=== PATIENT | female | born 1965 | race Caucasian/White ===

== ENCOUNTER 2017-12-06 13:45 | Emergency (ER) | payer OTHER ==
[~2017-12-06] VITALS: Ht 167.6 cm; Wt 82.6 kg
[~2017-12-06 13:45] MED LIST: ANASPAZ0.125 MG; AUGMENTIN 875875 MG PO; BENADRYL25 MG PO; COLACE100 MG; DARVOCET-N 1001 EACH PO; FIORICET 50-321 EACH PO; GNP HEADACHE P1 EACH PO; IBUPROFEN 600600 M1 PO; KEFLEX500 MG; MACROBID 100 M100 M1 PO; MUCINEX D TABL1 EAC1 PO; NAPROSYN500 MG PO; NOHOMEMEDICATIONS; NORCO 5-325 TA1 EACH; NORCO 5-325 TA1 EACH PO; NORFLEX100 MG PO; PAIN & FEVER500 MG PO; PHENAZOPYRIDIN200 M2; PHENERGAN 25 MG25 M1 PO; PREDNISONE 20 M20 MG PO; PROAIR HFA8.5 GM INH; SENNA8.6 M1; SLEEP-AID25 M1 PO; ULTRAM 50MG TAB50 MG PO
[2017-12-06 14:04] LABS: URINE BILIRUBIN NEGATIVE (Negative); URINE BLOOD 3+ (Negative); URINE CLARITY CLEAR; URINE COLOR YELLOW; URINE GLUCOSE-RANDOM* NEGATIVE (Negative); URINE KETONES NEGATIVE (Negative); URINE LEUKOCYTES NEGATIVE (Negative); URINE NITRITE NEGATIVE (Negative); URINE PROTEIN (DIPSTICK) NEGATIVE (Negative); URINE SPECIFIC GRAVITY <= 1.005 (1.005-1.035); URINE UROBILINOGEN 0.2 E.U./dl (0.2-1.0)
[2017-12-06 14:10] LABS: SQUAMOUS 0-3 Few /LPF (0-3); URINE WBC None Seen /HPF (0-5)
[2017-12-06 14:11] LABS: BACTERIA None Seen /HPF (None Seen); CASTS None Seen /LPF (None Seen); CRYSTALS None Seen /LPF (None Seen)
[2017-12-06 14:24] LABS: ABSOLUTE NEUTROPHILS 3.9 thou/uL (1.4-8.2); BASOPHILS 1.3 % (0.0-2.0); EOSINOPHILS 1.8 % (0.0-3.0); HEMATOCRIT 36.2 % (37.0-47.0); HEMOGLOBIN 12.1 gm/dL (12.0-15.0); LYMPHOCYTES 28.3 % (24.0-44.0); MCH 29.3 pg (26.0-34.0); MCHC 33.4 g/dL (28.0-37.0); MCV 87.7 fL (80.0-100.0); PLATELET COUNT 212 thou/uL (150-400); POLYS 62.6 % (36.0-66.0); RBC 4.13 mil/uL (4.20-5.00); RDW 14.4 % (10.5-14.5); WBC 6.2 thou/uL (4.0-11.0)
[2017-12-06 14:36] LABS: CALCIUM 9.1 mg/dL (8.5-10.1); CREATININE 0.7 mg/dL (0.6-1.0); POTASSIUM 3.5 mmol/L (3.5-5.1)
[2017-12-06 14:41] LABS: ALBUMIN 3.9 g/dL (3.4-5.0); TOTAL BILIRUBIN 0.4 mg/dL (<0.1-1.0); TOTAL PROTEIN 7.7 g/dL (6.4-8.2)
[2017-12-06] MEDS ORDERED: HYDROCODONE-AP1 EAC6 PO (14:58)
[2017-12-06 15:20] VITALS: BP 138/74
== END 2017-12-06 19:17 | disposition home or self-care (01) ==
LOC: ER 13:45
PROVIDERS: Physician Assistant
DX: N20.0 Calculus of kidney (principal); E78.00 Pure hypercholesterolemia, unspecified; F41.9 Anxiety disorder, unspecified; G43.909 Migraine, unspecified, not intractable, without status migrainosus; Z88.1 Allergy status to other antibiotic agents

== ENCOUNTER 2017-12-08 06:27 | Emergency (ER) | payer OTHER ==
[~2017-12-08] VITALS: Ht 167.6 cm; Wt 82.6 kg
[~2017-12-08 06:27] MED LIST changes: +HYDROCODONE-AP1 EAC6 PO
[2017-12-08 07:04] LABS: URINE BILIRUBIN NEGATIVE (Negative); URINE BLOOD 2+ (Negative); URINE CLARITY CLEAR; URINE COLOR YELLOW; URINE GLUCOSE-RANDOM* NEGATIVE (Negative); URINE KETONES NEGATIVE (Negative); URINE LEUKOCYTES-REFLEX NEGATIVE (Negative); URINE NITRITE-REFLEX NEGATIVE (Negative); URINE PROTEIN (DIPSTICK) NEGATIVE (Negative); URINE SPECIFIC GRAVITY 1.015 (1.005-1.035); URINE UROBILINOGEN 0.2 E.U./dl (0.2-1.0)
[2017-12-08 07:32] LABS: CASTS None Seen /LPF (None Seen); CRYSTALS None Seen /LPF (None Seen); SQUAMOUS 4-10 Moderate /LPF (0-3); URINE WBC-REFLEX 0-5 Rare /HPF (0-5)
[2017-12-08 07:33] LABS: BACTERIA-REFLEX 1-9 Few /HPF (None Seen)
[2017-12-08 07:43] LABS: ABSOLUTE NEUTROPHILS 3.9 thou/uL (1.4-8.2); EOSINOPHILS 1.9 % (0.0-3.0); HEMATOCRIT 36.2 % (37.0-47.0); HEMOGLOBIN 12.2 gm/dL (12.0-15.0); MCH 29.6 pg (26.0-34.0); MCHC 33.7 g/dL (28.0-37.0); MCV 87.7 fL (80.0-100.0); MONOCYTES 7.2 % (1.0-8.0); PLATELET COUNT 200 thou/uL (150-400); POLYS 66.9 % (36.0-66.0); RBC 4.13 mil/uL (4.20-5.00); RDW 14.6 % (10.5-14.5); WBC 5.8 thou/uL (4.0-11.0)
[2017-12-08 07:50] LABS: ANION GAP 7 mmol/L (7-16); BUN 19 mg/dL (7-18); CALCIUM 9.2 mg/dL (8.5-10.1); CHLORIDE 106 mmol/L (98-107); CO2 28 mmol/L (21-32); CREATININE 0.9 mg/dL (0.6-1.0); GLUCOSE 104 mg/dL (74-106); POTASSIUM 3.4 mmol/L (3.5-5.1); SODIUM 141 mmol/L (136-145)
[2017-12-08 08:07] LABS: ALBUMIN 3.8 g/dL (3.4-5.0); DIRECT BILIRUBIN < 0.1 mg/dL (<0.1-0.3); LIPASE 115 U/L (73-393); SGOT 22 U/L (15-37); SGPT 20 U/L (30-65); TOTAL BILIRUBIN 0.5 mg/dL (<0.1-1.0); TOTAL PROTEIN 7.5 g/dL (6.4-8.2)
[2017-12-08] MEDS ORDERED: ZOFRAN4 MG PO (08:22)
[2017-12-08 10:14] VITALS: BP 139/75
== END 2017-12-08 10:15 | disposition home or self-care (01) ==
LOC: ER 06:27
PROVIDERS: Emergency Medicine
DX: N20.1 Calculus of ureter (principal); E78.00 Pure hypercholesterolemia, unspecified; F41.9 Anxiety disorder, unspecified; G43.909 Migraine, unspecified, not intractable, without status migrainosus; Z88.1 Allergy status to other antibiotic agents

== ENCOUNTER 2017-12-10 09:58 | Inpatient (IN) | payer OTHER ==
[~2017-12-10] VITALS: Ht 167.6 cm; Wt 82.6 kg
[2017-12-10] VITALS (7 sets, daily range): BP systolic 94–176; BP diastolic 55–102
--- NOTE | ~2017-12-10 | O ---
[facility] [place] [address] OPERATIVE REPORT Name: CARY GUZMAN Room #: 433-I ADM IN M.R.#: [id number] Admission: 12/10/17 Attend Phys: David Hinds MD Discharge: Date of : 61 Report #: [id number] THIS REPORT FOR: //name// CC: David Gonzalezcomb PREOPERATIVE DIAGNOSES: Left ureteral stone and right abdominal pain. POSTOPERATIVE DIAGNOSES: Left ureteral stone and right abdominal pain. PROCEDURE: Cystoscopy, left ureteroscopy, holmium laser ablation of the left ureteral stone with placement of indwelling left ureteral stent and right retrograde pyelogram. SURGEON: Joe Valencia MD ANESTHESIA: General. INDICATIONS: The patient is a very pleasant 52-year-old woman who was hospitalized with pain secondary to a left ureteral stone. The stone is really not visible on KUB, her symptoms persist and she has been counseled with respect to treatment options and will undergo endoscopic manipulation. Risk of deep venous thrombosis, pulmonary embolism, heart attack, stroke and have been discussed. She understands complications could occur either immediate or delayed with open surgery. I have discussed stent management with her and stent retrieval both using a dangler and retrieving the stone cystoscopically. She is anxious to proceed. She understands risks and benefits and alternative therapies. DESCRIPTION OF PROCEDURE: After obtaining informed consent, she was brought to the operating room where general anesthetic was administered. She was prepped and draped in the lithotomy position by the operating personnel under anesthesia supervision. The preliminary fluoroscopic images showed the pain pump in place. There were no obvious opacifications along the course of the left ureter. The 21-Faroese ACMI cystoscope was introduced. Bladder was smooth walled. No intrinsic mucosal lesions. The trigone and ureters were normal in configuration and location. The Glidewire was placed into the left ureter. There was some initial resistance in the mid ureter ____ the wire went easily into the left kidney. The ureteral orifice itself was pinpoint. Therefore, I dilated to a 15-Faroese at 10 atmospheres using the 4 cm balloon. It dilated very easily and then I inserted this. The ureter had a very straight path. Therefore, I introduced the 6.9 Faroese semirigid scope. I was able to identify the stone in the midureter just proximal to the iliac vessels. I used the 365 micron laser fiber to break the stone into numeral fragments, the largest of the fragments which itself was very tiny and was retrieved with a 0 Faroese nitinol basket. I was able to examine the entire ureter with no stone fragments present. I then withdrew the ureteroscope. I placed a 6-Faroese x 26 cm contour stent over the [address] [address] OPERATIVE REPORT Name: CARY GUZMAN Room #: 433-I [facility] IN M.R.#: [id number] Admission: 12/10/17 Attend Phys: David Hinds MD Discharge: Date of : 61 Report #: [id number] Glidewire. The proximal curl of the stent was overlying the left kidney. The distal curl was in the bladder. The dangler was secured to the lower abdomen. She had mentioned that she had pain preoperatively and was not sure if she was splinting on the right side or whether it is true stone pain and she does have a known stone ____ the lower pole of the left kidney. I discussed with her doing a right retrograde pyelogram. Therefore, I cannulated the right ureter with a 5 Faroese open-ended ureteral catheter. Contrast was injected. In the entire collecting system, there were no obvious filling defects. There was no hydronephrosis. The right ureter and right intrarenal collecting system were normal and there was prompt drainage. The retrograde pyelogram was normal. I then drained the bladder. She was transferred to the recovery room where she arrived in stable condition. The findings were shared with her when she woke up as there was no family to contact and she did not request anybody to be contacted. ADDENDUM: Please note a timeout was performed and IV antibiotics were administered before starting the case. <ELECTRONICALLY SIGNED> By: Joe Valencia MD 12/12/17 1019 0906 [id number] Joe Valencia MD /nt
[~2017-12-10 09:58] MED LIST changes: +ZOFRAN4 MG PO
[2017-12-10 10:28] LABS: ABSOLUTE NEUTROPHILS 4.2 thou/uL (1.4-8.2); BASOPHILS 0.5 % (0.0-2.0); HEMATOCRIT 36.9 % (37.0-47.0); LYMPHOCYTES 22.8 % (24.0-44.0); MCH 29.2 pg (26.0-34.0); MCHC 32.5 g/dL (28.0-37.0); MCV 89.9 fL (80.0-100.0); MONOCYTES 5.8 % (1.0-8.0); PLATELET COUNT 174 thou/uL (150-400); POLYS 68.9 % (36.0-66.0); RDW 14.8 % (10.5-14.5); WBC 6.1 thou/uL (4.0-11.0)
[2017-12-10 10:35] LABS: CALCIUM 8.8 mg/dL (8.5-10.1); CREATININE 0.9 mg/dL (0.6-1.0)
[2017-12-10 10:38] LABS: POTASSIUM 3.9 mmol/L (3.5-5.1)
[2017-12-10 10:40] LABS: ALBUMIN 3.6 g/dL (3.4-5.0); TOTAL BILIRUBIN 0.3 mg/dL (<0.1-1.0); TOTAL PROTEIN 7.4 g/dL (6.4-8.2)
[2017-12-10 11:10] LABS: URINE BILIRUBIN NEGATIVE (Negative); URINE BLOOD 3+ (Negative); URINE CLARITY SL HAZY; URINE COLOR YELLOW; URINE GLUCOSE-RANDOM* NEGATIVE (Negative); URINE KETONES NEGATIVE (Negative); URINE LEUKOCYTES NEGATIVE (Negative); URINE NITRITE NEGATIVE (Negative); URINE PROTEIN (DIPSTICK) NEGATIVE (Negative); URINE UROBILINOGEN 0.2 E.U./dl (0.2-1.0)
[2017-12-10 11:25] LABS: CASTS None Seen /LPF (None Seen); SQUAMOUS 4-10 Moderate /LPF (0-3); URINE WBC 0-5 Rare /HPF (0-5)
[2017-12-10 11:26] LABS: BACTERIA None Seen /HPF (None Seen); CRYSTALS None Seen /LPF (None Seen); YEAST Present (None Seen)
[2017-12-11 03:18] VITALS: BP 104/65
[2017-12-11 07:28] VITALS: BP 96/59
[2017-12-11 07:36] LABS: CALCIUM 8.6 mg/dL (8.5-10.1); CREATININE 1.4 mg/dL (0.6-1.0); POTASSIUM 3.4 mmol/L (3.5-5.1)
[2017-12-11 15:39] VITALS: BP 152/89
[2017-12-11 20:30] VITALS: BP 95/53
[2017-12-12] VITALS (9 sets, daily range): BP systolic 97–142; BP diastolic 52–82
[2017-12-12 20:35] LABS: URINE BILIRUBIN NEGATIVE (Negative); URINE BLOOD 3+ (Negative); URINE CLARITY CLOUDY; URINE COLOR RED; URINE GLUCOSE-RANDOM* NEGATIVE (Negative); URINE KETONES TRACE (Negative); URINE PROTEIN (DIPSTICK) 2+ (Negative); URINE SPECIFIC GRAVITY 1.025 (1.005-1.035)
[2017-12-12 20:36] LABS: URINE LEUKOCYTES-REFLEX 2+ (Negative); URINE NITRITE-REFLEX POSITIVE (Negative)
[2017-12-12 20:44] LABS: BACTERIA-REFLEX 1-9 Few /HPF (None Seen); CASTS None Seen /LPF (None Seen); CRYSTALS None Seen /LPF (None Seen); SQUAMOUS 0-3 Few /LPF (0-3); URINE RBC >20 Many /HPF (0-2); URINE WBC-REFLEX 6-15 Few /HPF (0-5)
[2017-12-13 00:06] VITALS: BP 116/75
[2017-12-13 02:36] VITALS: BP 127/72
[2017-12-13 08:00] VITALS: BP 140/85
[2017-12-13 10:27] VITALS: BP 140/85
[2017-12-13] MEDS ORDERED: FLOMAX0.4 MG PO (12:31)
[2017-12-13 12:34] VITALS: BP 140/85
[2017-12-13 16:58] VITALS: BP 140/85
== END 2017-12-13 17:07 | disposition home or self-care (01) | DRG 661 ==
LOC: ER 09:58 → 4S 11:15 → EROBS 11:15 → 4S 14:02 → ENTRNSPT 12-13 15:15 → EDTRNSPTSTS 12-13 15:20 → 4S 12-13 17:07
PROVIDERS: Hospitalist; Physician Assistant; Specialist
PROC: 0T778DZ Dilation of Left Ureter with Intraluminal Device, Via Natural or Artificial Opening Endoscopic (ICD-10-PCS; principal; 2017-12-12)
PROC: BT1D1ZZ Fluoroscopy of Right Kidney, Ureter and Bladder using Low Osmolar Contrast (ICD-10-PCS; principal; 2017-12-12)
PROC: 0T578ZZ Destruction of Left Ureter, Via Natural or Artificial Opening Endoscopic (ICD-10-PCS; principal; 2017-12-12)
DX: N20.2 Calculus of kidney with calculus of ureter (principal); G43.909 Migraine, unspecified, not intractable, without status migrainosus; F41.9 Anxiety disorder, unspecified; E78.00 Pure hypercholesterolemia, unspecified; Z79.899 Other long term (current) drug therapy; Z88.1 Allergy status to other antibiotic agents
CPT/HCPCS: 10195; 50010; 50101; 50164; 51179; 51511; 51620; 51767; 56526; 56674; 56815; 62110; 62900; 70005

== ENCOUNTER 2019-01-08 11:09 | Emergency (ER) | payer OTHER ==
[~2019-01-08] VITALS: Ht 170.2 cm; Wt 86.2 kg
[~2019-01-08 11:09] MED LIST changes: +FLOMAX0.4 MG PO
[2019-01-08] MEDS ORDERED: NAPROSYN500 MG PO (12:46)
[2019-01-08 13:09] VITALS: BP 142/73
== END 2019-01-08 13:00 | disposition home or self-care (01) ==
LOC: ER 11:09
DX: S83.8X2A Sprain of other specified parts of left knee, initial encounter (principal); G43.909 Migraine, unspecified, not intractable, without status migrainosus; F41.9 Anxiety disorder, unspecified; E78.00 Pure hypercholesterolemia, unspecified; Z87.442 Personal history of urinary calculi; Z88.1 Allergy status to other antibiotic agents; X58.XXXA Exposure to other specified factors, initial encounter; Y93.89 Activity, other specified; Y92.89 Other specified places as the place of occurrence of the external cause; Y99.8 Other external cause status

== ENCOUNTER 2019-10-19 17:19 | Emergency (ER) | payer OTHER ==
[~2019-10-19] VITALS: Ht 170.2 cm; Wt 79.4 kg
[2019-10-19 17:44] LABS: ABSOLUTE NEUTROPHILS 2.2 thou/uL (1.4-8.2); BASOPHILS 1.3 % (0.0-2.0); EOSINOPHILS 1.4 % (0.0-3.0); HEMATOCRIT 40.5 % (37.0-47.0); HEMOGLOBIN 13.3 gm/dL (12.0-15.0); LYMPHOCYTES 39.6 % (24.0-44.0); MCH 28.9 pg (26.0-34.0); MCHC 32.9 g/dL (28.0-37.0); MCV 87.8 fL (80.0-100.0); MONOCYTES 8.1 % (1.0-8.0); PLATELET COUNT 132 thou/uL (150-400); POLYS 49.6 % (36.0-66.0); RBC 4.61 mil/uL (4.20-5.00); RDW 14.4 % (10.5-14.5); WBC 4.3 thou/uL (4.0-11.0)
[2019-10-19 17:54] LABS: ANION GAP 12 mmol/L (7-16); BUN 27 mg/dL (7-18); CALCIUM 9.4 mg/dL (8.5-10.1); CHLORIDE 99 mmol/L (98-107); CO2 26 mmol/L (21-32); CREATININE 0.8 mg/dL (0.6-1.0); GLUCOSE 93 mg/dL (74-106); POTASSIUM 3.2 mmol/L (3.5-5.1); SODIUM 137 mmol/L (136-145)
[2019-10-19 18:01] LABS: ALBUMIN 3.9 g/dL (3.4-5.0); DIRECT BILIRUBIN < 0.1 mg/dL (<0.1-0.2); LIPASE 119 U/L (73-393); SGOT 30 U/L (15-37); SGPT 20 U/L (30-65); TOTAL BILIRUBIN 0.3 mg/dL (<0.1-1.0); TOTAL PROTEIN 8.4 g/dL (6.4-8.2)
[2019-10-19 18:11] LABS: URINE BLOOD 2+ (Negative); URINE CLARITY CLEAR; URINE COLOR YELLOW; URINE GLUCOSE-RANDOM* NEGATIVE (Negative); URINE KETONES 2+ (Negative); URINE LEUKOCYTES-REFLEX TRACE (Negative); URINE NITRITE-REFLEX NEGATIVE (Negative); URINE PROTEIN (DIPSTICK) NEGATIVE (Negative); URINE SPECIFIC GRAVITY >= 1.030 (1.005-1.035); URINE UROBILINOGEN 0.2 E.U./dl (0.2-1.0)
[2019-10-19 18:15] LABS: ICTOTEST (BILI CONFIRMATORY) Negative (Negative); URINE BILIRUBIN NEGATIVE (Negative)
[2019-10-19 18:28] LABS: CASTS None Seen /LPF (None Seen); SQUAMOUS 4-10 Moderate /LPF (0-3); URINE RBC 0-2 Rare /HPF (0-2); URINE WBC-REFLEX 6-15 Few /HPF (0-5)
[2019-10-19 18:29] LABS: BACTERIA-REFLEX 1-9 Few /HPF (None Seen); CRYSTALS None Seen /LPF (None Seen); MUCUS 4-6 Moderate strn/LPF (None Seen)
[2019-10-19] MEDS ORDERED: PROMETH-CODEIN 65 ML PO (21:50)
[2019-10-19] MEDS ORDERED: PREDNISONE 20 M20 MG PO (21:50)
[2019-10-19 22:27] VITALS: BP 123/60
--- NOTE | 2019-10-21 14:51 | EKG ---
[address] [address] ELECTROCARDIOGRAM REPORT Name: CARY GUZMAN [id number] Admission: 10/19/19 Attend Phys: Discharge: 10/19/19 Date of : 61 Report #: [id number] THIS REPORT FOR: //name// [facility] ED Test Date: 2019-10-19 Test Time: 17:24:22 Pat Name: CARY GUZMAN Department: Room: Gender: F Stripper Latex: KF : 1965 Requested By: Selvin Olmos Order Number: [id number] MD: Desean Cabrera Measurements Intervals [place] Rate: 77 P: 54 [place]: 138 QRS: 44 QRSD: 92 T: 9 QT: 365 QTc: 414 Interpretive Statements Sinus rhythm No previous ECG available for comparison Electronically Signed On 10-21-2019 14:50:27 [employer] by Desean Cabrera [email or web address] <ELECTRONICALLY SIGNED> By: Desean Cabrera MD 10/21/19 1450 1724 172 Desean Cabrera MD /JOSE
== END 2019-10-19 22:10 | disposition home or self-care (01) ==
LOC: ER 17:19
PROVIDERS: Emergency Medicine
DX: R11.2 Nausea with vomiting, unspecified (principal); R05 Cough; R09.81 Nasal congestion; E78.00 Pure hypercholesterolemia, unspecified; G43.909 Migraine, unspecified, not intractable, without status migrainosus; F41.9 Anxiety disorder, unspecified; Z87.442 Personal history of urinary calculi; Z88.1 Allergy status to other antibiotic agents

== ENCOUNTER 2020-04-05 11:14 | Emergency (ER) | payer OTHER ==
[~2020-04-05] VITALS: Ht 170.2 cm; Wt 81.7 kg
[~2020-04-05 11:14] MED LIST changes: +PROMETH-CODEIN 65 ML PO
[2020-04-05 12:29] LABS: ABSOLUTE NEUTROPHILS 2.4 thou/uL (1.4-8.2); BASOPHILS 1.7 % (0.0-2.0); EOSINOPHILS 6.7 % (0.0-3.0); HEMATOCRIT 37.4 % (37.0-47.0); LYMPHOCYTES 36.4 % (24.0-44.0); MCH 30.8 pg (26.0-34.0); MCHC 34.6 g/dL (28.0-37.0); PLATELET COUNT 186 thou/uL (150-400); POLYS 47.2 % (36.0-66.0); RDW 13.4 % (10.5-14.5); WBC 5.2 thou/uL (4.0-11.0)
[2020-04-05 12:31] LABS: URINE BILIRUBIN NEGATIVE (Negative); URINE BLOOD 3+ (Negative); URINE CLARITY SL CLOUDY; URINE COLOR YELLOW; URINE GLUCOSE-RANDOM* NEGATIVE (Negative); URINE KETONES NEGATIVE (Negative); URINE NITRITE-REFLEX NEGATIVE (Negative); URINE PROTEIN (DIPSTICK) 1+ (Negative); URINE SPECIFIC GRAVITY >= 1.030 (1.005-1.035); URINE UROBILINOGEN 0.2 E.U./dl (0.2-1.0)
[2020-04-05 12:32] LABS: URINE LEUKOCYTES-REFLEX 1+ (Negative)
[2020-04-05 12:39] LABS: CREATININE 1.3 mg/dL (0.6-1.0)
[2020-04-05 12:41] LABS: POTASSIUM 3.5 mmol/L (3.5-5.1)
[2020-04-05 12:44] LABS: TOTAL BILIRUBIN 0.4 mg/dL (0.2-1.0); TOTAL PROTEIN 8.3 g/dL (6.4-8.2)
[2020-04-05 12:50] LABS: HYALINE CASTS 0-3 Few /LPF (None Seen); SQUAMOUS >10 Many /LPF (0-3); URINE RBC >20 Many /HPF (0-2); URINE WBC-REFLEX 6-15 Few /HPF (0-5)
[2020-04-05 12:51] LABS: BACTERIA-REFLEX 1-9 Few /HPF (None Seen); CRYSTALS None Seen /LPF (None Seen)
[2020-04-05 17:19] VITALS: BP 121/50
== END 2020-04-05 17:20 | disposition short-term general hospital (02) ==
LOC: ER 11:14
PROVIDERS: Physician Assistant
DX: N13.2 Hydronephrosis with renal and ureteral calculous obstruction (principal); G43.909 Migraine, unspecified, not intractable, without status migrainosus; E78.00 Pure hypercholesterolemia, unspecified; F41.9 Anxiety disorder, unspecified; Z87.442 Personal history of urinary calculi; Z79.899 Other long term (current) drug therapy; Z88.1 Allergy status to other antibiotic agents

== ENCOUNTER 2020-06-07 10:06 | Emergency (ER) | payer OTHER ==
[~2020-06-07] VITALS: Ht 162.6 cm; Wt 83.9 kg
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
[2020-06-07 10:52] LABS: ABSOLUTE NEUTROPHILS 9.6 thou/uL (1.4-8.2); BASOPHILS 0.9 % (0.0-2.0); EOSINOPHILS 0.1 % (0.0-3.0); HEMATOCRIT 36.7 % (37.0-47.0); HEMOGLOBIN 12.3 gm/dL (12.0-15.0); LYMPHOCYTES 11.1 % (24.0-44.0); MCH 29.3 pg (26.0-34.0); MCHC 33.5 g/dL (28.0-37.0); MCV 87.6 fL (80.0-100.0); MONOCYTES 6.6 % (1.0-8.0); PLATELET COUNT 171 thou/uL (150-400); POLYS 81.3 % (36.0-66.0); RBC 4.19 mil/uL (4.20-5.00); RDW 13.8 % (10.5-14.5); WBC 11.7 thou/uL (4.0-11.0)
[2020-06-07 10:54] LABS: ANION GAP 14 mmol/L (7-16); BUN 17 mg/dL (7-18); CALCIUM 8.8 mg/dL (8.5-10.1); CHLORIDE 101 mmol/L (98-107); CO2 23 mmol/L (21-32); CREATININE 1.1 mg/dL (0.6-1.0); GLUCOSE 136 mg/dL (74-106); POTASSIUM 3.2 mmol/L (3.5-5.1); SODIUM 138 mmol/L (136-145)
[2020-06-07 11:05] LABS: DIRECT BILIRUBIN 0.2 mg/dL (<0.1-0.2); MAGNESIUM 1.9 mg/dL (1.8-2.4); SGOT 19 U/L (15-37); SGPT 13 U/L (30-65); TOTAL BILIRUBIN 0.8 mg/dL (0.2-1.0); TOTAL PROTEIN 8.1 g/dL (6.4-8.2); TROPONIN-I <0.06 ng/mL (<0.06)
[2020-06-07 18:27] VITALS: BP 100/58
--- NOTE | 2020-06-08 10:14 | EKG ---
[facility] [address] ELECTROCARDIOGRAM REPORT Name: CARY GUZMAN Room #: DEP [facility]#: [id number] Admission: 06/07/20 Attend Phys: Discharge: 06/07/20 Date of : 61 Report #: [id number] THIS REPORT FOR: cc: ALYX - Renu family physician/PCP ALYX - No family physician/PCP Trace Fernando MD [facility] THIS REPORT FOR: //name// [facility] ED Test Date: 2020-06-07 Test Time: 10:12:10 Pat Name: CARY GUZMAN Department: Room: Gender: F Manager Leasing: : 1965 Requested By: Madelin Jean Order Number: [id number] MD: Trace Fernando Measurements Intervals [place] Rate: 115 P: 51 [place]: 157 QRS: 49 QRSD: 86 T: -19 QT: 290 QTc: 401 Interpretive Statements Sinus tachycardia Nonspecific ST segment abnormality Compared to ECG 10/19/2019 17:24:22 ST segment abnormality is now present Electronically Signed On 06-08-2020 10:14:12 CDT by Trace Fernando [email or web address] <ELECTRONICALLY SIGNED> By: Trace Fernando MD, [facility] 06/08/20 1014 1012 1012 Trace Fernando MD, [facility] /EPI
== END 2020-06-07 18:45 | disposition home or self-care (01) ==
LOC: ER 10:06
PROVIDERS: Emergency Medicine
DX: I95.1 Orthostatic hypotension (principal); E63.9 Nutritional deficiency, unspecified; G43.909 Migraine, unspecified, not intractable, without status migrainosus; E78.00 Pure hypercholesterolemia, unspecified; F41.9 Anxiety disorder, unspecified; Z87.442 Personal history of urinary calculi; Z79.899 Other long term (current) drug therapy; Z88.1 Allergy status to other antibiotic agents

== ENCOUNTER 2021-03-30 13:05 | Emergency (ER) | payer OTHER ==
[~2021-03-30] VITALS: Ht 170.2 cm; Wt 70.3 kg
[2021-03-30 13:16] VITALS: BP 128/93
[2021-03-30 13:42] LABS: BASOPHILS 2.1 % (0.0-2.0); EOSINOPHILS 5.1 % (0.0-3.0); HEMATOCRIT 38.4 % (37.0-47.0); HEMOGLOBIN 12.8 gm/dL (12.0-15.0); LYMPHOCYTES 38.8 % (24.0-44.0); MCH 29.6 pg (26.0-34.0); MCHC 33.5 g/dL (28.0-37.0); MCV 88.5 fL (80.0-100.0); MONOCYTES 6.5 % (1.0-8.0); PLATELET COUNT 160 thou/uL (150-400); POLYS 47.5 % (36.0-66.0); RBC 4.33 mil/uL (4.20-5.00); RDW 14.1 % (10.5-14.5); WBC 4.2 thou/uL (4.0-11.0)
[2021-03-30 13:51] LABS: URINE BLOOD TRACE (Negative); URINE CLARITY CLOUDY; URINE COLOR YELLOW; URINE GLUCOSE-RANDOM* NEGATIVE (Negative); URINE KETONES TRACE (Negative); URINE NITRITE-REFLEX NEGATIVE (Negative); URINE PROTEIN (DIPSTICK) NEGATIVE (Negative); URINE SPECIFIC GRAVITY >= 1.030 (1.005-1.035); URINE UROBILINOGEN 0.2 E.U./dl (0.2-1.0)
[2021-03-30 13:51] LABS: ANION GAP 10 mmol/L (7-16); BUN 19 mg/dL (7-18); CALCIUM 9.3 mg/dL (8.5-10.1); CHLORIDE 106 mmol/L (98-107); CO2 26 mmol/L (21-32); CREATININE 0.9 mg/dL (0.6-1.0); GLUCOSE 109 mg/dL (74-106); POTASSIUM 3.1 mmol/L (3.5-5.1); SODIUM 142 mmol/L (136-145)
[2021-03-30 13:52] LABS: ICTOTEST (BILI CONFIRMATORY) Negative (Negative); URINE BILIRUBIN NEGATIVE (Negative); URINE LEUKOCYTES-REFLEX 1+ (Negative)
[2021-03-30 13:57] LABS: SALICYLATE < 2.8 mg/dL (2.8-20.0); SGOT 15 U/L (15-37); SGPT 8 U/L (14-59); TOTAL BILIRUBIN 0.5 mg/dL (0.2-1.0); TOTAL PROTEIN 7.6 g/dL (6.4-8.2)
[2021-03-30 14:00] LABS: SQUAMOUS >10 Many /LPF (0-3)
[2021-03-30 14:01] LABS: CRYSTALS None Seen /LPF (None Seen); HYALINE CASTS 0-3 Few /LPF (None Seen); URINE RBC 1-2 Rare /HPF (NONE SEEN); URINE WBC-REFLEX 6-15 Few /HPF (0-5)
[2021-03-30 14:17] LABS: AMP/METHAMP Negative (Negative); BARBITURATES Negative (Negative); BENZODIAZEPINES Negative (Negative); COCAINE Negative (Negative); METHADONE Negative (Negative); OPIATES Negative (Negative); PCP Negative (Negative)
--- NOTE | 2021-03-30 15:18 | EKG ---
[address] [place] [address] ELECTROCARDIOGRAM REPORT Name: CARY GUZMAN Room #: REG [facility]#: [id number] Admission: 03/30/21 Attend Phys: Discharge: Date of : 61 Report #: [id number] [facility] ED Test Date: 2021-03-30 Test Time: 13:39:43 Pat Name: CARY GUZMAN Department: Room: Gender: F Tie Sawyer: irena : 1965 Requested By: Carlito Cortes Order Number: [id number] MD: Porfirio Marie Measurements Intervals [place] Rate: 75 P: 57 [place]: 139 QRS: 37 QRSD: 102 T: 20 QT: 362 QTc: 405 Interpretive Statements Sinus rhythm Probable left atrial enlargement Compared to ECG 06/07/2020 10:12:10 Sinus tachycardia no longer present ST (T wave) deviation no longer present Electronically Signed On 03-30-2021 15:18:31 CDT by Porfirio Marie [email or web address] <ELECTRONICALLY SIGNED> By: Porfirio Marie MD, [facility] 03/30/21 1518 1339 1339 Porfirio Marie MD, [facility] /EPI
== END 2021-03-30 21:29 | disposition still patient (30) ==
LOC: ER 13:05
PROVIDERS: Emergency Medicine
DX: R45.851 Suicidal ideations (principal); Z20.822 Contact with and (suspected) exposure to COVID-19; E78.00 Pure hypercholesterolemia, unspecified; G43.909 Migraine, unspecified, not intractable, without status migrainosus; Z87.442 Personal history of urinary calculi; Z87.898 Personal history of other specified conditions

== ENCOUNTER 2021-03-30 19:05 | Inpatient (IN) | payer OTHER ==
[~2021-03-30] VITALS: Ht 170.2 cm; Wt 70.7 kg
[2021-03-30 22:00] VITALS: BP 98/66
--- NOTE | 2021-03-31 04:43 | NUR ---
PATIENT ARRIVED THE UNIT AT 2150. SHE IS ALERT AND ORINETED TO PLACE WITH SOME CONFUSSION. SHE DENIES ANY PAINS AND DISCOMFORT AT THIS TIME. SHE ALSO DENIES SI/AVH/HI. LUNGS ARE CLEAR, BS ACTIVE X4 QUADS. SHE IS CONTINENT OF BOWEL AND BLADDER. SHE HAS SOME OLD BRIUSE TO HER LEFT LEG. SOME RASHES TO HER UPPER BOTH ARMS.CALL TO THE HOSPITALIST GURINDER GEOSPATIAL INTELLIGENCE ANALYST AND SHE CAME AND MEET WITH THE PATINET. PT SAID SHE FEELS SAFE HERE BUT PREFERES TO SEE PEOPLE THAN ALONE IN THE ROOM. NURSE MOVED HER TO THE DININIG AREA AND SHE LAY ON THE RECLINER WITH HER PILLOW AND BLANKET ON. SHE SAID SHE WAS USING BENEDRYL AND IBUPROFEN AT HOME. SHE SIGN HER CONSENT TO TREAT BUT C/O POOR SIGHT AND NOT ABLE TO READ THE OTHER DOCUMENTS. PT IS ON FALL PRECAUTION; BED IS LOW, LOCKED AND ALARMED. NO SIGN OF SI NOTED AT THIS SHIFT.Q 12MINUTES CHECK ONGOING.NO CONCERN NOTED. CONTINUE CARE AND MONITOR.
[2021-03-31 06:29] LABS: ANION GAP 11 mmol/L (7-16); BUN 22 mg/dL (7-18); CALCIUM 8.9 mg/dL (8.5-10.1); CHLORIDE 107 mmol/L (98-107); CHOLESTEROL 240 mg/dL (<200); CO2 24 mmol/L (21-32); CREATININE 0.9 mg/dL (0.6-1.0); GLUCOSE 97 mg/dL (74-106); HDL CHOLESTEROL 62 mg/dL (>40); LDL CHOLESTEROL 157 mg/dL (<100); SODIUM 142 mmol/L (136-145); TC:HDL 3.9 Ratio (Not establshd); TRIGLYCERIDE 108 mg/dL (<150); VLDL 22 mg/dL (<40)
[2021-03-31 06:39] LABS: POTASSIUM 4.2 mmol/L (3.5-5.1); SERUM ASSESSMENT Clear
[2021-03-31 09:53] VITALS: BP 148/79
--- NOTE | 2021-03-31 11:11 | NUR ---
New admission to [facility]. Pt admitted d/t SI w/plans and past attempts. Phsycho-social difficulties in the community with poor access to resources. Noted with 30# weight loss x last 18 months since last admssion in Oct 2019. Reportedly not eating well at home d/t no access to food. Intake limited to crackers and energy drinks last 2 weeks. Has dx anxiety and depression. Current weight appropriate and goal would be to maintain. Will defer to for outside resources upon d/c. Will order supplement TID r/t hx weight loss. Low nutrition risk at this time.
--- NOTE | 2021-03-31 14:59 | NUR ---
PATIENT HAS BEEN UP, AND OUT ON THE UNIT, AMBULATE WITH STEADY GAIT. PATIENT IS ALERT, AND ORIENTED X 2-3, ABLE TO VOICE NEED, SHE IS FORGETFUL, AND CONFUSED AT TIMES. PATIENT IS EATING MEALS, AND DRINKING FLUID WELL. PATIENT TOOK MEDICATION WHOLE WITHOUT DIFFICULTY. PATIENT OOK SHOWER THIS MORING, WELL TOLERATED. PATIENT DENIES SUICIDAL/HOMICIDAL IDEATION, "BEING ALONE MAKES ME HAVE ALL THIS SAD THOUGHTS". SHE RATES DEPRESSION 8/10, ANXIETY 7/10. PATIENT C/O HEADACHE, RATES IT /10, PRN TYLENOL 650MG GIVEN, ZOLOFT GIVEN PER ORDER. AFFECT IS EUTHYMIC, MOOD IS DEPRESSED/CALM. PATIENT IS PARTICIPATING GROUP THERAPY, INTERACTING WELL WITH PEERS, AND STAFF. NO SIGN OF ACUTE DISTRESS NOTED AT THIS TIME, WILL MONITOR FOR SAFETY.
[2021-03-31 19:16] VITALS: BP 119/68
[2021-04-01 00:06] LABS: GLYCOHEMOGLOBIN (HGB A1C) 5.2 % (4.8-5.6)
--- NOTE | 2021-04-01 01:52 | NUR ---
Pt. spent the whole night in her room resting quietly in bed. When this nurse went to give her hs meds she voiced some thoughts of jumping off a bridge if she could. Frequent rounding on patient.
[2021-04-01 08:00] VITALS: BP 156/75
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
--- NOTE | 2021-04-01 13:35 | NUR ---
GERARDO recieved a call from Faviola at [facility] concerning referral sent on the Pt. Faviola stated they would like to complete a phone assessment with the Pt, however Pt does qualify for the suicide prevention program. Faviola stated when Pt is discharged [facility] could assist with paying for the Pt's medications. Pt's skilled nursing case manager will be Marta Lantigua [phone]. GERARDO will continue to follow
--- NOTE | 2021-04-01 17:04 | NUR ---
Assumed pt care at 0300. pt was in her room awake. pt was alert and oriented to person, situation and time. upon assessment pt stated that she wants to today. pt stated that she hears a voice that tells her to jump out of the window. consumer loan underwriter redirected pt. pt continued to state that she hears someone saying the will push her off the windows. consumer loan underwriter redirected pt, and help her see the windows were sealed. pt stated that the thermostat in her room was a camera watching her. pt was redirected. Dr Torres was notified of pt behavior. Assessments completed, vss. pt took meds whole, no difficulty noted. c/o pain, tylenol administered as ordered. Ambulates with a steady gait. HYDROXYZINE WAS ADMINISTERED FOR ANXIETY. Reassessments pt stated she feels better. pt is currently in the day room eating dinner. will continue to monitor.
[2021-04-01 19:33] VITALS: BP 114/58
--- NOTE | 2021-04-02 05:34 | NUR ---
Assumed pt's care beginning of this pm shift. Pt was in the dayroom at time of assessment. Alert and oriented x3. Voiced being in [place]. Reorientation provided as needed. Pt was pleasant and cooperative with care. Visible tremors. Pt took meds whole per emar. When asked if pt was having thought of hurting her self, pt verbalized "they said I'm safe here". Pt denied auditory hallucination or any hallucination. Voiced that a voice told him earlier in the day time to "jump out of the window". Pt voiced she's not currently hearing that voice. Pt contracyted for safety. Encouraged to talk to staff if starting to hear any voice or having any SI ideation. Pt slept well this shift. No overnight event. Nursing to continue to monitor.
[2021-04-02 08:43] VITALS: BP 122/58
--- NOTE | 2021-04-02 15:28 | NUR ---
I assumed care by 0700, patient was alert and oriented x 4. "complianied hearing voices telling her to jump off the window" she was anxious and tearfull, medication was given. she was told to come to the stuff when the voices returns; denied HI/SI, Assesment was done without any albnormal findings, skins were intact, she took her medication without any problem.
--- NOTE | 2021-04-02 16:36 | NUR ---
GERARDO recieved a call from [facility] worker, Angeline Weirtyrone [phone] or [phone]. GERARDO provided Angeline with an update and concerns about the Pt. GERARDO informed Pt would be discharged to a homeless skilled nursing. Also working with the Pt to get her cats into [facility]. GERARDO provide Angeline with the Pt's [facility] case management director's contact information. Angeline asked to be contacted when Pt discharges.
--- NOTE | 2021-04-02 18:44 | NUR ---
Patient got anxious this everning after talking to the licensed master social worker about her cats, " said she was SI, the nurse redirected and walked her to her room,she used the barthroom and went to bed.
[2021-04-02 19:21] VITALS: BP 117/66
[2021-04-02 20:00] VITALS: BP 117/66
--- NOTE | 2021-04-03 02:46 | NUR ---
PATIENT CARE WAS RESUMED AT 1900. SHE WAS IN HER ROOM RESTING IN BED. SHE IS ALERT AND SHE VERBALISE HER CONCERN OF GOING TO HOMELESS [facility]. SHE DENIES ANY HI BUT SAID SHE IS SUCIDAL WITH INTENT TO JUMP OUT OF THE WINDOW. CARMELINA IS MAD AWARE THAT THE WINDOWS ARE WELL SECURE AND SHOULD BE IN THE OPEN TO INTERACT WITH OTHER PATINETS. SHE SAID SHE WANT TO BE IN HER ROOM. SHE TOK HER MEDS WHOLE AND NURSE ENSURED MED WAS SWALLOWDED.BS ACTIVE X4 QUAD, ABD SFT NONE TENDER.BED IS LOW, LOCKED AND ALARMED. STAFF CONTINUED RN AND FREQUENT [id number] CHECKS. CONTINUE TO MONITOR.
[2021-04-03 10:03] VITALS: BP 126/69
--- NOTE | 2021-04-03 11:28 | NUR ---
Patient care resumed by 0700, was still in bed, got her up and ready for breakast and groups in the day room, she eat 25% of her meal,nothing abnormal in her assessment, history of SI with prior attempt but she hasn't complain of hearing voices to jump off the widown as of this time, she denied HI, will continue to monitor
--- NOTE | 2021-04-03 11:36 | NUR ---
04/02/2021 GERARDO met with the Pt concerning discharge. GERARDO informed Pt about discharge date and going to a homeless penitentiary. Pt became tearful stating, " I thought I wouldn't have to go to a homeless penitentiary until I couldn't live in my house any more". GERARDO worked with the Pt on understanding safety issues with going back to her home. SW informed Pt about the [facility] hotline about the conditions of the home and the home being uninhabitable due to no utilities. SW and Pt discussed Pt's overall mental health decline due to Pt's current situation. Pt was agreeable to going to a homeless penitentiary. SW and Pt completed an application for the home away from home application with [facility] [employer]. Pt understood this would allow her pet to be placed in a foster home while she was in a penitentiary. GERARDO provided Pt with her [facility] CM name an contact information. Pt again became tearful stating "If there is a bridge by the homeless penitentiary , I will find it and jump off". Pt acknowledged that she felt anxious about the change of going to a penitentiary and afraid she would not get her cats back. GERARDO provided emotional support. After the meeting GERARDO did inform Nurse Henson of Pt's SI. GERARDO will continue to follow
--- NOTE | 2021-04-03 18:32 | NUR ---
PATIENT GOT ANXIOUS AT ABOUT 1815, SHE TOLD ME SHE IS SI, WHEN ASKED IF SHE HAS A PLAN, "SHE SAID SHE WILL TAKE LOTS OF PILLS WHEN SHE GET DISCHARGE", I GAVE HER HYDROXYZINE FOR ANXIETY
[2021-04-03 20:12] VITALS: BP 107/67
[2021-04-03 20:20] VITALS: BP 107/67
--- NOTE | 2021-04-04 01:04 | NUR ---
PATIENT CARE WAS RESUMED AT 1900. SHE WAS IN THE [facility] AREA SOCIALZING WITH OTHER PATINETS. SHE IS CALM AND CO-POPERATIVE WITH CARE.SHE C/O PAIN TO HER RIGHT LOWER ABD. PRN TYLENOL GIVEN WITH SOME GOOD EFFECT. SHE REQUESTED FOR STOOL SOFTER AND COLACE WAS GIVEN PER PRN ORDER.SHE IS CONTINENT OF BOWEL AND BLADDER. LUNGS ARE CLEAR BS ACTIVE X4 QUADS. SHE DENIES SI/AVH /HI AT TIS TIME. SHE TOOK HER MEDS WHOLE. RESTING CALM IN BED. BED IS LOW, LOCKED AND PT HAS A YELLOW SOCK AND TOP ON AT THIS TIME.Q 12MINUTES CHECK IS ON. CONTINUE TO MONITOR
[2021-04-04 09:06] VITALS: BP 110/62
--- NOTE | 2021-04-04 13:56 | NUR ---
Patient care was assumed by 0700, sitting at the dayroom ready for the day, eat breakfast, vital/signs were stable, patient was calm and cooperative for assessment, no abnormal findings,she complain of not been able to have a bowel movement, doctor was notify, Polyethylene Glycol daily was order and was been given, denied HI/SI as of this time, we continue to monitor patient.
[2021-04-04 19:52] VITALS: BP 115/66
--- NOTE | 2021-04-05 03:28 | NUR ---
04-04-21 CARE TRANSFERRED 0 OBSERVED PT SITTING IN DAY ROOM. LATER PT AAOX4, VSS, RR EVEN AND NONLABORED ON RA. PT DENIES SI/HI AND PAIN. PT PRESENTS ANXIOUS BUT REMAINS CALM AND COOPERATIVE. LATER PT REPORTED BEING WORRIED ABOUT GOING TO A NEW FACILITY AND IF IT WULD BE A GOOD FIT FOR HER. LATER PT REPORTED HAVING A HEADACHE AND FEELING EXTREMELY ANXIOUS PRN MEDICATION MANAGED PAIN AND ANXIETY. LATER NOTED PT WAS RESTING WITH EYES CLOSED. PT WILL CONTINUE TO BE MONITOR PER [facility] PROTOCOL.
[2021-04-05 09:03] VITALS: BP 125/69
--- NOTE | 2021-04-05 12:30 | NUR ---
Assumed pt care at 0700. pt was in her room sleeping. Assessments completed, vss. pt took meds whole, no difficulty noted. pt ambulate with a steady gait. upon assessments, pt stated she had thought of suicide last night. Pt stated she heard a voice telling her to jump of 25th floor. PT STATED SHE was ABLE TO RESIST THOUGHT. Pt c/o pain, Tylenol administered as ordered. At 1250 pt reported to principal technical writer she was hearing voices asking her to jump off through the window. principal technical writer redirected pt. Pt requested to have hydroxyzine. Hydroxyzine administered as ordered. At this time pt is in the day room watching TV. Will continue to monitor.
--- NOTE | 2021-04-05 17:37 | NUR ---
GERARDO and Dr. Chamberlain met with the Pt concerning discharge. Pt was tearful during this interaction. Information about discharge was discussed again. Pt stated she was hearing voice over the weekend. Pt asked if the homeless shelters have locked doors to stop her from walking out if she became suicidial. GERARDO informed the doors are not looked however staff is avalibale 24hr in case of a crisis. Staff will be able to call 911 and get Pt to [facility] for a mental health evaluations if needed. GERARDO also encouraged Pt to utilize her new case aubree Lozano for support as needed. GERARDO will continue to follow.
[2021-04-05 19:15] VITALS: BP 114/77
--- NOTE | 2021-04-06 00:55 | NUR ---
7-02-19 CARE TRANSFERRED 1899. LATER PT RESTING IN BED WITH EYES CLOSED, PT EASILY AROUSED TO VOICED. PT AAOX4, VSS, RR EVEN AND NONLABORED ON RA. PT REPORTS THAT THIS MORNING SHE WAS HEARING VOICES TELLING HER TO JUMP. PT DENIES AT THIS TIME SI/HI/VAH. PT REPORTS BEING ANXIOUS GOING TO [facility], PT WAS RECEPTIVE TO LOOKING A NEW BEGINNING AND WE DISCUSSED THE DIFFERENT POSSIBLITIES. PT DENIED PAIN BUT REPORTED THAT SHE HAD 15 BM TODAY, PT ABD HYPERACTIVE, LUNGS CLEAR, HT RR. PT HAS REMAINED CALM AND COOPERATIVE, NOTED PT HAS TREMORS UE. LATER PT REPORTED PAIN IN ABD, SCALED 6 ON 0-1 SCALE. UPON REASSESSMENT PT WAS RESTING WITH EYE CLOSED. ZERO S/S OF ACUTE DISTRESS NOTED, PT WILL CONTINUE TO BE MONITOR PER [facility] PROTOCOL.
[2021-04-06 09:21] VITALS: BP 116/55
--- NOTE | 2021-04-06 12:01 | NUR ---
Assumed patient care by 0700, patient was awake sitting in the day room, vital/signs were normal, took medication whole, compalin of back pain. Assessment completed, patient was alert and oriented X4, she denied SI/HI, Later in the day patient complained of left hand swollen, I tooked at it but didn't notice any swollen. Will continue to monitor patient
--- NOTE | 2021-04-06 17:34 | NUR ---
GERARDO recieved a call from Rosa Marie CM. GERARDO provided background information on the Pt and informed Marta Pt's discharge moved to . GERARDO CARRILLO informed Marta of Pt's immediate needs at discharge. Pt will have to discharge to a homeless usp due to no working utilities in her home and pending forclosure. . Marta planned to visit with the Pt Monday and would like to be notified when the Pt discharges. GERARDO will continue to follow
--- NOTE | 2021-04-06 18:28 | NUR ---
ASSESSED ARMS BILATERALLY WITH NO SWELLING NOTED, NO DISCOLORATION AND TREMORS TO LEFT HAND HAVE NOT INCREASED TO PRIOR ASSESSMENT. DR BAUMANN NOTIFIED OF PATIENTS CONCERNS.
[2021-04-06 19:57] VITALS: BP 109/58
[2021-04-06 20:45] VITALS: BP 109/58
--- NOTE | 2021-04-07 01:24 | NUR ---
PATINET CARE WAS RESUMED AT 1900. SHE IS ALERT AND ORIENTED. ABLE TO VERBALIZE HER NEED. LUNGS ARE CLEAR BS ACTIVE X4 QUAD.PT DENIES ANY SI/AVH/HI. SHE AMBULATES AND CONTINET OF BOWEL AND BLADDER. SHE TOOK HER MEDS WHOLE AND NO BEHAVIOR NOTED AT THIS TIME. BEDLOW, ALARMED, AND LOCK. Q 12MINUTES CHECK ONGOING. CONT CARE AND MONITOR.
[2021-04-07 10:54] VITALS: BP 122/70
--- NOTE | 2021-04-07 11:06 | NUR ---
Nutrition followup: Pt continues on [facility] unit. Eats 75-100% of meals but denies this stating she is not eating. Nsg affirms correct intake records. Pt does admit to drinking ensure TID, will continue. Pt unable to provide many food preferences but is interested in changing lunch order which RD assisted with. BM 04/05. ~stable weights on unit. Plan D/C 04/08 to homeless [facility]. Low risk.
--- NOTE | 2021-04-07 13:12 | NUR ---
Assumed pt care at 0700. pt was alert and oriented to person, situation and Time. Active bowel sound.denies si/hi, denies pain at this time. pt c/o pain at 0827. Tylenol administered as ordered. Pt took meds whole, no difficulty noted. No sign of acute distress noted upon assessments. Upon assessments pt reported that she had voice telling her she will today. casualty underwriter assessed and redirected pt. pt ate breakfast and lunch. ATTENDED GROUPS AND SOCIALIZED WITH OTHER PT. At this time pt is in the day room. Will continue to monitor pt.
--- NOTE | 2021-04-07 16:23 | NUR ---
GERARDO met with Pt to [place] ( SNAP/Fodstamps). GERARDO faxed and emailed the application to [place] [employer] , [email or web address]. GERARDO gave original application with fax confirmation sheet to the Pt.
--- NOTE | 2021-04-07 16:28 | NUR ---
@2457 GERARDO met with the Pt's CM, Marta. GERARDO gave an update concerning Pt's discharge. Marta stated she would be able to assist with getting an appointment with psychiatry through [facility] and follow up with [facility]. Marta was able to meet with the Pt alone in the Pt's room. GERARDO will continue to follow
[2021-04-07 19:35] VITALS: BP 115/73
[2021-04-07 20:10] VITALS: BP 115/73
[2021-04-07 21:00] VITALS: BP 115/73
--- NOTE | 2021-04-08 04:00 | NUR ---
PATIENT CARE WAS RESUMED AT 190. SHE IS ALERT AND ORIENTED . ABLE T VERBALIZE HER NEEDS. LUNGS ARE CLEAR BS ACTIVE X 4 QUADS. SHE AMBULTES AND CONTINENT OF BOWEL AND BLADDER.SHE TOOK HER MEDS WHOLE. SHE DENIES PAINS/AVH/SI/HI. Q 12 MINUTES CHECK IS ONGOING. CNTINUE CARE AND MONITOR
[2021-04-08 09:04] VITALS: BP 138/78
--- NOTE | 2021-04-08 16:16 | NUR ---
Assumed PT CARE AT 0700, patient was sitting at the day room,alert and oriented x4, calm and cooperative, happy that she wasn't going home today, she ate breakfast and lunch, Assessments completed, vss, lungs clears, BS active, takes medication whole, c/o pain ibuprofen administered as ordered. Denies si/hi, she is up ad-hiro, paticipated in groups. Will contiune to monitor.
[2021-04-08 19:45] VITALS: BP 124/76
[2021-04-08 19:57] VITALS: BP 124/76
--- NOTE | 2021-04-08 23:37 | NUR ---
PATINET CARE WAS RESUMED AT 1900. SHE IS ALERT AND ORINETD TO PERSON AND PLACE. SITTING IN THE DINIG AREA SOCILIZING WITH OTHER PATINETS. SHE AMBULTES AND ABLE TO VERBALIZE SOME NEEDS. LUNGS ARE CLEAR BS ACTIVE [id number]. SHE DENIES SI/AVH/HI A THIS TIME. SHE SAID SHE HEARD VOICES TELLING HER TO KILL HERSELF IN THE MORINING BUT NOT AT THIS TIME. SHE HAS A YELLOW SOCK AND TOP FOR FALL PRECAUTION ON. TOOK HER MEDS WHOLE AFTER ASKING WHAT EACH PILL WAS FOR.Q12 MINUTES CHECK ONGOING. BED IS LOW AND LOCKED. CONTINUE CARE AND MONITOR.
[2021-04-09 09:15] VITALS: BP 150/73
--- NOTE | 2021-04-09 12:49 | NUR ---
Alert and orientated X4. States she is having constant SI while awake. States male voice is telling her to kill herself. States she would jump off building if she had the opportunity. Ambulates with walker with regular, steady gait. Breath sounds clear. Reg HR auscultated. Color pink with brisk capillary refill and palpable peripheral pulses. Independent with voiding. Active bowel sounds over soft, flat abdomen. No s/o distress. Attending groups, complimentary of staff. No s/o distress. 10 mg geodon given IM per order per R deltoid.
--- NOTE | 2021-04-09 18:00 | NUR ---
GERARDO spokw with Marta, Pt's assistant banquet manager. Marta stated she would not be able to transport the Pt Monday to a homeless [place] [facility]. Marta stated she would be able to contact the Pt by phone once discharged. Marta had no other questions or concerns.
[2021-04-09 19:40] VITALS: BP 118/73
--- NOTE | 2021-04-10 01:49 | NUR ---
Pt is sitting in dayroom. Discussed her medications and asked pt if she would like her PRN Hydroxine. Provided pt education on hydroxine and pt decided yes she would like to try. Pt is A/O x 3, Amb independently without assist device. Denies SI/HI/AH/VH. will continue to monitor throughout shift.
[2021-04-10 03:07] VITALS: BP 118/73
[2021-04-10 08:39] VITALS: BP 113/63
--- NOTE | 2021-04-10 08:46 | NUR ---
Alert and orientated X 4 this AM with significant hand tremors at times. This AM she is reporting a hallucination of seeing a line of carts in the hallway that move at times. Since meds were being passed and med carts were being reflected in glass partition tried to clarify it with her but she states they are not the med carts. Reporting frequent SI this AM but no command hallucinations. States her first thought this AM was to jump. Denies HI. Smiling and conversational with staff and peers t/o breakfast. States she is scared of hallucinations but displays no s/o distress. Breath sounds clear. Reg HR auscultated. Color pink with brisk capillary refill and palpable peripheral pulses. Independent with voiding. States she had BM yesterday. Active bowel sounds over soft, rounded abdomen. Ambulates with walker with steady gait. Currently in day room without s/o distress.
[2021-04-10 18:32] LABS: URINE BILIRUBIN NEGATIVE (Negative); URINE BLOOD NEGATIVE (Negative); URINE CLARITY CLEAR; URINE COLOR YELLOW; URINE GLUCOSE-RANDOM* NEGATIVE (Negative); URINE KETONES NEGATIVE (Negative); URINE NITRITE-REFLEX NEGATIVE (Negative); URINE PROTEIN (DIPSTICK) NEGATIVE (Negative); URINE SPECIFIC GRAVITY 1.015 (1.005-1.035); URINE UROBILINOGEN 0.2 E.U./dl (0.2-1.0)
[2021-04-10 18:34] LABS: URINE LEUKOCYTES-REFLEX 1+ (Negative)
[2021-04-10 18:49] LABS: BACTERIA-REFLEX >30 Many /HPF (None Seen); CASTS None Seen /LPF (None Seen); CRYSTALS None Seen /LPF (None Seen); SQUAMOUS 0-3 Few /LPF (0-3); URINE RBC 1-2 Rare /HPF (NONE SEEN); URINE WBC-REFLEX 6-15 Few /HPF (0-5)
[2021-04-10 19:44] VITALS: BP 135/74
[2021-04-10 21:24] VITALS: BP 135/74
--- NOTE | 2021-04-10 22:10 | NUR ---
2210 RESUMMED CARE FROM DAY SHIFT THIS AM, PATIENT WALKING THE HALLS FOR EXERCISE. PATIENT ALERT ORIENTED TIMES 4 PATIENT DENIES SI/HI/AH BUT HAS VISUAL HALLUCINATION OF A PERSON SITTING IN A CHAIR. SHE STATES SHE ASKED ANOTHER PATIENT IF HE COULD SEE THE PERSON AND THE PATIENT SAID NO. PATIENT THEN TALKED WITH ME ABOUT HER HAVING TO GO TO A CUSTODIAL DO TO HOME CONDEMED. PATIENTS ABDOMEN SOFT BOWEL SOUNDS PRESENT PATIENTS LUNGS CLEAR; PATIENT CALM COOPERATIVE. WILL CONTINUE TO MONITOR PATIENT FOR SAFETY AND BEHAVIORS.
[2021-04-11 05:37] LABS: ABSOLUTE NEUTROPHILS 3.3 thou/uL (1.4-8.2); EOSINOPHILS 4.2 % (0.0-3.0); HEMATOCRIT 30.3 % (37.0-47.0); HEMOGLOBIN 10.2 gm/dL (12.0-15.0); LYMPHOCYTES 29.1 % (24.0-44.0); MCH 30.2 pg (26.0-34.0); MCHC 33.8 g/dL (28.0-37.0); MCV 89.4 fL (80.0-100.0); MONOCYTES 8.8 % (1.0-8.0); PLATELET COUNT 158 thou/uL (150-400); POLYS 56.9 % (36.0-66.0); RBC 3.39 mil/uL (4.20-5.00); RDW 14.4 % (10.5-14.5); WBC 5.8 thou/uL (4.0-11.0)
[2021-04-11 05:55] LABS: ALBUMIN 3.3 g/dL (3.4-5.0); CREATININE 0.8 mg/dL (0.6-1.0); MAGNESIUM 2.2 mg/dL (1.8-2.4); POTASSIUM 3.9 mmol/L (3.5-5.1); TOTAL BILIRUBIN 0.2 mg/dL (0.2-1.0); TOTAL PROTEIN 6.8 g/dL (6.4-8.2)
[2021-04-11 08:40] VITALS: BP 114/67
--- NOTE | 2021-04-11 15:52 | NUR ---
REPORTS HAVING "HALLUCINATIONS" DURING AM ASSESSMENT-WHEN ASKED TO DESCRIBE REPORTS PRIMARILY DISTORTION OF OBJECTS THAT ARE REAL AND VISIBLE ON UNIT OR IN ROOM (IE WHEELCHAIR WHICH IS MOVING OR NURSING MOBILE COMPUTER DEVICE THAT IS THE "SIZE OF A CAR") DID LATER IN SHIFT REPORT HEARING A VOICE IN HER ROOM BUT WASN'T SURE WHAT IT SAID OR IF VOICE BELONGED TO A MAN OR WOMAN. DENIES SI/SH/HI. DOES REPORT SOME ACUTE ANXIETY R/T DC PLANNED FOR 04/12 BUT RATES THIS A 5 ON 1-10 SCALE AND DENIES NEED FOR PRN ANXIETY MEDICATION. REPORTS MEDIUM SOFT BM THIS AM AND STATES FEELS THOUGH CONSTIPATION IS "A LOT BETTER" DID REPORT SMALL AMOUNT BRIGHT RED BLOOD IN STOOL AFTER BM-DR KIM NOTIFIED AND ORDERS RECEIVED. KEFLEX STARTED PER MD ORDER FOR UTI-DID REPORT SMALL AMOUNT OF EMESIS NOT OBSERVED BY STAFF AFTER LUNCH-DENIES NAUSEA BUT STATES FEELING LIKE "I COULD THROW UP AGAIN"USING ROLLER WALKER WHEN AMBULATING AND GAIT IS STEADY WITH USE OF ASSISTIVE DEVICE.
[2021-04-11 19:35] VITALS: BP 122/97
[2021-04-11 22:15] VITALS: BP 122/97
--- NOTE | 2021-04-12 01:57 | NUR ---
PATINET CARE WAS RESUMED AT 1900. SHE IS ALERT AND ORIENTED. SHE AMBULLAES. MODERATE ASSIST TO STAND BY WITH CARE. SHE IS CONTINET OF AGUSTIN AND BLADDER. ABLE TO VERBALIZE HER NEEDS. SHE WAS CONCERNED ABOUT THE POSSIBLE OUTCOME OF HER LAB REPORT. SHE DENIES SI/AVH/HI. SHE SAID SHE GONIG HOME IN THE MORNING BUT NOT EXCITED ABOUT IT. ABD IS SOFT NONE TENDER. LUNGS ARE CLEAR TO AUSCULTATION. SHE HAS A YELLOW TOP AND SOCKS ON. BED IS LOW, LOCKED. Q 12 MINUTES CHECK IS ONGONIG AND SHE REQUESTED FOR PAIN MEDS LATER FOR ABD IT WAAS GIVEN WITH SOME GOOD EFFECT. CONT CARE AND MONITOR
[2021-04-12] MEDS ORDERED: Cephalexin 500 MG Ca PO (08:52)
[2021-04-12] MEDS ORDERED: ZOLOFT 50 MG TA50 MG PO (08:53)
[2021-04-12] MEDS ORDERED: LIPITOR10 MG PO (08:53)
[2021-04-12] MEDS ORDERED: MIRALAX17 GM PO (08:54)
[2021-04-12] MEDS ORDERED: MELATONIN5 M1 PO (08:55)
[2021-04-12 09:08] VITALS: BP 108/70
--- NOTE | 2021-04-12 17:51 | NUR ---
Assumed pt care at 0700. pt was in the day room awake. ALERT AND ORIENTED TO PERSON, situation and time. ASSESments completed, vss. active bowel sounds. stated she wanted to today. c/o pain, meds administered as ordered. Took meds whole, no difficulty noted. AMBULATES WITH A STEADY GAIT. nO SIGN OF ACUTE DISTRESS NOTED UPON ASSESSMENTS. CALM AND COOPERATIVE WITH CARE AND ASSESSMENTS. Reassessments at 1500, pt stated she was fine, no si/hi noted. 1743 pT WAS D/C, WITH BELONGINGS, D/C INSTRUCTION, AND MEDICATION. PT WAS D/C HOME VIA W/C.
--- NOTE | 2021-04-12 18:50 | NUR ---
@2913 SW recieved a call from [facility] worker, Mariama Storey [phone], concerning Pt's discharge. Sw informed Pt would be discharged however a homeless [facility] bed had not been sceured. GERARDO will follow up concerning the matter.
--- NOTE | 2021-04-12 18:52 | NUR ---
7928 GERARDO recieved a call from Rosa Salmeron CM bailer operators supervisor [phone]/ [phone]. Faviola inquired about Pt's discharge. GERARDO informed a long term bed had not yet been scured. Faviola asked for a call back concerning the matter.
--- NOTE | 2021-04-12 18:54 | NUR ---
@3340 GERARDO called [facility]. After several calls GERARDO was able to speak with Nurse Itzel. A phone intake was completed. Itzel informed they could not accept the Pt at the alf due to Pt's vision issues and Pt not being able to navigate without assistance. Itzel informed it was a safety issue. Itzel provided a referral to Management services, , and [facility] ([place], [place]), . GERARDO contacted [facility] and left a message requesting a call back. As of this note there has been no call back from [facility]. GERARDO also contacted [employer] and spoke with Milan. Milan explained that the company manages a nursing homes, such as the [facility], and may be able to to accept the Pt if she could qualify for medicaid. Milan requested a referral be faxed to [phone]. GERARDO provided information about the Pt over the phone. Milan stated he would call SW back concerning the matter. GERARDO recieved a call back from Milan at 11:45. Milan stated they would not be able to accept the Pt due to the possiblity of the Pt being over resourced for medicaid. Milan explained the Pt home is not yet in full foreclosure and the home's worth is $170,000. Due to this medicaid would consider the home as an asset and it would take the Pt 67 months to spend down the money she could potential recieve from the sale of the home. GERARDO informed Nelda Kemp and Dr. Chamberlain of this information. The decision was made to send the Pt back to her home. Dr. Chamberlain and GERARDO had a meeting with the Pt concerning the matter. GERARDO explained to the Pt the concerns of the homeless alf and issues with medicaid. GERARDO talked with the Pt about the positives of starting CM services with Rosa and completing a medicaid/foodstamp application while in the hospital. Pt was tearful, however expressed her gratefulness. Pt also expressed being hopeful about working with her supportive employment case manager Marta. Pt was excited to go home to her cats. Pt had no other questions or concern. Pt denied SI during this meeting. GERARDO did contact [facility] worker, Mariama Storey, and [facility] CM Candy Attendant, Faviola, to informed about the discharge plan for Pt to return home. Faviola did inform she would setup intake appointments for psychiatry at [facility] for the Pt. Faviola also stated she or Marta would go to the Pt's home on 04/13/2021 to check on the Pt. d/c 04/12/2013 @ 17:30 via taxi.
--- NOTE | 2021-04-13 09:37 | D ---
[facility] [place] [address] DISCHARGE SUMMARY Name: CARY GUZMAN Room #: 525B-B DIS IN M.R.#: [id number] Admission: 03/30/21 Attend Phys: David Torres DO Discharge: 04/12/21 Date of : 61 Report #: [id number] THIS REPORT FOR: cc: FAM - No family physician/PCP FAM - No family physician/PCP David Torres DO ~ DATE OF SERVICE: 04/12/2021 PSYCHIATRIC DISCHARGE SUMMARY ATTENDING PSYCHIATRIST: David Torres DO BANK VAULT CUSTODIAN: Luis Moreira M.D. DISCHARGE DIAGNOSES: Major depressive disorder, single episode, severe degree improved. ADDITIONAL PROBLEMS: Homelessness; UTI, on Keflex; abdominal pain with a history of recurrent nephrolithiasis. She had a sonogram, which showed a few renal calculi, no obstruction. Constipation, continue fiber preparation. Anemia. Fecal occult blood test was recommended. I am not sure that was completed inpatient. Outpatient colonoscopy is recommended for the patient. However, she is uninsured, she is only 55. Hyperlipidemia, on statin. Urine cultured, normal senthil. The patient is discharging to home. Psychiatric followup will be with [facility]. She is enrolled in a crisis case management program. The patient is encouraged to establish primary care at at [facility] or [facility]. DISCHARGE MEDICATIONS: As follows: Cephalexin 500 mg oral twice daily for 4 more days, atorvastatin 10 mg oral at bedtime for hyperlipidemia, sertraline 50 mg oral daily for depression, MiraLax 17 g oral daily for bowel motility, and melatonin 10 mg oral at bedtime. The patient should return to ER or seek emergency medical attention if she has suicidal or homicidal ideations, chest pain, fever greater than 101, increased swelling, edema, and trouble breathing. LABORATORY DATA: Significant laboratories this admission, hematology, H and H 10.2 and 30.3, white count 5.8, platelet 158. Chemistries: Sodium 142, potassium 3.9, chloride 104, bicarbonate 27, anion gap 11, BUN 34, creatinine 0.8, estimated GFR 74, glucose 84, calcium 9.0, phosphorus 4.0, magnesium 2.2, total bilirubin 0.2, AST 21, ALT 17, alkaline phosphatase 57, total protein 6.8, albumin 3.3. Cholesterol 240, LDL 157, HDL 62. Urinalysis this admission showed a few positives including bacteria, leukocyte esterase, fluid culture was negative. COVID-19 test this admission was negative. REASON FOR ADMISSION: Back in March is as follows: A 55-year-old [address] [address] DISCHARGE SUMMARY Name: CARY GUZMAN Room #: 525B-B [facility] IN M.R.#: [id number] Admission: 03/30/21 Attend Phys: David Torres DO Discharge: 04/12/21 Date of : 61 Report #: [id number] female, who presented to the ED with ideations she wanted to kill herself. Apparently, the patient lost her job in the spring and has been [address] the [address] without utilities. She made the claim that her water has been turned off for 10 years. In addition, she had a sister, who in November 2020 and I was her last remaining family. HOSPITAL COURSE: The patient was admitted to Geriatric Psychiatry Unit. She was started on sertraline and melatonin. Her sleep improved. The patient had intermittent and inconsistent descriptions of her voice at times telling her to jump as well and seeing mainly unseen objects such as multiple desks or chairs that were moving when others cannot. So, the patient has a significant visual impairment such that we ran into trouble with [facility] taking her at time of discharge. The patient had poor tolerability with Abilify and then I added a several day trial of olanzapine with increased tremor and restlessness. I elected to discontinue antipsychotics completely. Over the last several days, the patient had a positive mood, occasional reports of wanting to live, but again her behavior was not consistent with the suicidal patient. She had a bright affect and participated in all activities. She had no self-harm gestures while in the Geriatric Psychiatry Unit. I feel we have maximized the benefit at this time. The patient certainly needs to get Medicaid and get more prominent [place] [facility] facility. Hopefully, the case management rn will assist with this. During the admission, we did leave a voicemail for her niece, who lives in [place] and niece did not return my call, so this was not a useful resource for the patient. DISCHARGE PHYSICAL EXAM: VITAL SIGNS: At time of discharge, temperature 36.4, pulse 76, respirations 17, BP 108/70, and O2 sat 99%. MUSCULOSKELETAL: Slow gait, normal station. MENTAL STATUS EXAMINATION: This is a well-developed, somewhat ill-appearing female. Attention intact. Concentration was intact. Speech normal rate, volume, and tone. Thought process: Linear and goal directed. Thought content focused on discharge challenges. Denied suicidal or homicidal ideation, auditory, visual, or tactile hallucinations at the time of discharge. Mood and affect were okay, happy, congruent, and euthymic. Memory not formally tested. Insight limited. Judgment: Fair to limited. Fund of knowledge average range. Prognosis for this patient is guarded and will depend on her getting safer [facility] [address] [place] [address] DISCHARGE SUMMARY Name: MEGANCARY LINH Room #: 525B-B DIS IN M.R.#: [id number] Admission: 03/30/21 Attend Phys: David Torres DO Discharge: 04/12/21 Date of : 61 Report #: [id number] housing, engaging with [facility] resources, getting vision challenges corrected. <ELECTRONICALLY SIGNED> By: David Torres DO 04/13/21 0937 1930 57 David Torres DO /nt
== END 2021-04-12 17:43 | disposition home or self-care (01) | DRG 885 ==
LOC: SBH
PROVIDERS: Internal Medicine; ADMIT Psychiatry & Neurology Psychiatry; ATTEND Psychiatry & Neurology Psychiatry
DX: F32.2 Major depressive disorder, single episode, severe without psychotic features (principal); R45.851 Suicidal ideations; N39.0 Urinary tract infection, site not specified; G61.0 Guillain-Barre syndrome; K59.00 Constipation, unspecified; D64.9 Anemia, unspecified; N20.0 Calculus of kidney; E78.5 Hyperlipidemia, unspecified; F41.9 Anxiety disorder, unspecified; G47.00 Insomnia, unspecified; Z96.0 Presence of urogenital implants; G43.909 Migraine, unspecified, not intractable, without status migrainosus; E78.00 Pure hypercholesterolemia, unspecified; Z60.2 Problems related to living alone; F42.9 Obsessive-compulsive disorder, unspecified; Z59.0 Homelessness; Z79.899 Other long term (current) drug therapy; Z91.5 Personal history of self-harm; Z88.1 Allergy status to other antibiotic agents; Z87.442 Personal history of urinary calculi; Z82.0 Family history of epilepsy and other diseases of the nervous system
CPT/HCPCS: 10880